=== PATIENT | male | born 1970 | race Caucasian/White ===

== ENCOUNTER → 2022-08-26 08:58 | Outpatient (BNVA) | payer BC, SELFPAY | PROVIDERS: PCP Physician Assistant Medical; Visit Provider Psychiatry & Neurology Neurology | DX: G43.119 Migraine with aura, intractable, without status migrainosus (principal) ==

== ENCOUNTER → 2022-12-03 12:50 | Outpatient (BNVA) | payer BC, SELFPAY | PROVIDERS: PCP Physician Assistant Medical; Visit Provider Psychiatry & Neurology Neurology ==

== ENCOUNTER 2023-03-24 08:53 | Outpatient (AMB) | payer BC, SELFPAY ==
--- NOTE | 2023-03-24 08:57 | MHC.OFFVIS ---
Intake Vital Signs 03/24/23 09:00 Height 5 ft 11 in Weight 264 lb 8 oz BMI 36.9 BP 130/72 Blood Pressure Location Lt brachial Position Sitting Respiration 18 Pulse 68 Pulse Source Pulse Oximeter Pulse Oximetry (%) 100 Oxygen Delivery Method Room Air Intake Visit Reasons: 3month follow up-confirmed Allergies topiramate Allergy (Severe, Verified 03/24/23 08:58) Nausea Medication List - Last Reconciled 03/24/23 by Vanita Yates MD atorvastatin 40 mg PO DAILY erenumab-aooe (Aimovig Autoinjector) 140 mg subcut .q monthly 90 days magnesium oxide 400 mg PO DAILY propranolol ER 60 mg PO BEDTIME riboflavin (vitamin B2) 400 mg PO DAILY sumatriptan succinate 100 mg PO DIRECTED HPI HPI Comments History of Present Illness Details 52y/o male comes for follow up of migraines and sleep apnea. He did not start propranalol - he was worried about. He reports mild daily headaches which transforms to migraines 3-4 times a week. He takes sumatriptan as needed. The headaches can last the whole day. He had a neck sprain when he in [employer] 30 years ago The headaches can be frontal or unitemporal throbbing, pounding pain, light sensitive, has visual aura and has nausea.stress worsens migraines.He also has chronic tinnitus, depression or anxiety, He has sleep apnea and is on CPAP 12 - diagnosed in 2017 .He sleeps better,. He is on aimovig which has decreased the number of headaches and less intense. [facility] Medical History Depression Headache Memory loss Surgical History History of biopsy No pertinent past surgical history Family History Mother Crohn disease Emphysema lung Social History Alcohol intake: current Alcohol intake frequency: holidays/special occasions only Patient Tobacco Use Status: Never used Tobacco Physical Exam Vital Signs: Last Vital Signs Pulse 68 03/24/23 09:00 Resp 18 03/24/23 09:00 BP 130/72 03/24/23 09:00 Pulse Ox 100 03/24/23 09:00 Oxygen Delivery Method Room Air 03/24/23 09:00 BMI result Body Mass Index 36.9 Const General: cooperative, healthy appearing and comfortable Nutritional Appearance: obese Orientation/consciousness: patient oriented x3 HEENT Head: Yes normal to inspection Face and sinus: Yes normal facial exam Neuro General: patient oriented x3, gait normal, tone normal and moves all extremities Cranial nerves: Yes Bilaterally intact EOM present, Yes Nystagmus not present, Yes Normal facial strength present and Yes Midline tongue present Cognition (Neuro): normal cognition Coordination: [id number] test normal Assessment & Plan Assessment & Plan (1) Migraine with aura, intractable, without status migrainosus: Code(s): G43.119 - Migraine with aura, intractable, without status migrainosus (2) TOM on CPAP: Code(s): G47.33 - Obstructive sleep apnea (adult) (pediatric); Z99.89 - Dependence on other enabling machines and devices Plan Continue CPAP at 12 cm of water. Compliance stressed. magnesium 400mg qhs Vit B 2 400mg qam Trial patient on propranolol 10mg bid Aimovig 140mg qmonthly. Medications: New propranolol 10 mg PO BID 60 tabs 6RF Discontinued propranolol ER Discontinued Reason: Doctor's Order 60 mg PO BEDTIME 30 caps 3RF Coding Level of Care Code Est Pt Level 4 (12982) Diagnoses Migraine with aura, intractable, without status migrainosus G43.119 TOM on CPAP G47.33; Z99.89
[2023-03-24 09:00] VITALS: BP 130/72; PULSE 68; RESP 18; O2SAT 100; BMI 36.9
== END 2023-03-24 09:13 | disposition home or self-care (01) ==
PROVIDERS: Visit Provider Psychiatry & Neurology Neurology
DX: G43.119 Migraine with aura, intractable, without status migrainosus (principal); G47.33 Obstructive sleep apnea (adult) (pediatric); Z99.89 Dependence on other enabling machines and devices
CPT/HCPCS: 99214

== ENCOUNTER → 2023-03-24 08:53 | Outpatient (BNVA) | payer BC, SELFPAY | PROVIDERS: Visit Provider Psychiatry & Neurology Neurology ==

== ENCOUNTER 2023-08-12 07:55 | Outpatient (AMB) | payer BC, SELFPAY ==
[2023-08-12 08:00] VITALS: BP 126/84; PULSE 77; O2SAT 97; BMI 37.7
--- NOTE | 2023-08-12 08:00 | MHC.OFFVIS ---
Intake Vital Signs 08/12/23 08:00 Height 5 ft 11 in Weight 270 lb BMI 37.7 BP 126/84 Blood Pressure Location Rt brachial Position Sitting Pulse 77 Pulse Source Pulse Oximeter Pulse Oximetry (%) 97 Oxygen Delivery Method Room Air Intake Visit Reasons: 3m follow up-Confirmed Intake Note: Patient presents for 3 month follow up Allergies topiramate Allergy (Severe, Verified 08/12/23 08:02) Nausea HPI HPI Comments History of Present Illness Details 52y/o male comes for follow up of migraines and sleep apnea. He reports mild daily headaches which transforms to migraines 2-3 times a week. He takes sumatriptan as needed. The headaches can last the whole day. He is on aimovig which has decreased the number of headaches and less intense. He tried propranolol, but it caused him very sleepy. He also tried topiramate, not tolerated. He had a neck sprain when he in [employer] 30 years ago The headaches can be frontal or unitemporal throbbing, pounding pain, light sensitive, has visual aura and has nausea, stress worsens migraines. He also has chronic tinnitus, depression or anxiety. He has sleep apnea and is on CPAP 12 - diagnosed in 2017. He sleeps better with CPAP and daytime sleepiness has improved. The CPAP compliance and therapy response (05/14/23-08/11/23) reviewed. The usage days 100% and the average usage hours 8 hrs. The AHI was 1.2/hr. [facility] Medical History Depression Headache Memory loss Surgical History History of biopsy No pertinent past surgical history Family History Mother Crohn disease Emphysema lung Social History Alcohol intake: current Alcohol intake frequency: holidays/special occasions only Patient Tobacco Use Status: Never used Tobacco Review of Systems Const All systems reviewed & are unremarkable except as noted in HPI and below Physical Exam Vital Signs: Last Vital Signs Pulse 77 08/12/23 08:00 BP 126/84 08/12/23 08:00 Pulse Ox 97 08/12/23 08:00 Oxygen Delivery Method Room Air 08/12/23 08:00 BMI result Body Mass Index 37.7 Const General: cooperative, healthy appearing and comfortable Nutritional Appearance: obese Orientation/consciousness: patient oriented x3 HEENT Head: Yes normal to inspection Face and sinus: Yes normal facial exam Neuro General: patient oriented x3, gait normal, tone normal and moves all extremities Cranial nerves: Yes Bilaterally intact EOM present, Yes Nystagmus not present, Yes Normal facial strength present and Yes Midline tongue present Cognition (Neuro): normal cognition Coordination: [id number] test normal Assessment & Plan Assessment & Plan (1) Migraine with aura, intractable, without status migrainosus: Code(s): G43.119 - Migraine with aura, intractable, without status migrainosus (2) TOM on CPAP: Code(s): G47.33 - Obstructive sleep apnea (adult) (pediatric); Z99.89 - Dependence on other enabling machines and devices Plan Continue CPAP at [id number] as patient experiences good clinical effects, rest and refreshing sleep and daytime sleepiness has improved. Compliance stressed. Continue to take magnesium 400mg qhs Vit B 2 400mg qam for migraine prevention. Continue Aimovig 140mg qmonthly and uses sumatriptan 100 mg as needed to treat acute migraine. Medications: Changed From riboflavin (vitamin B2) 400 mg PO DAILY To riboflavin (vitamin B2) 400 mg PO DAILY 90 tabs 3RF 90 days From magnesium oxide 400 mg PO DAILY To magnesium oxide 400 mg PO DAILY 90 caps 3RF 90 days Refilled sumatriptan succinate 100 mg PO DIRECTED 12 tabs 6RF erenumab-aooe (Aimovig Autoinjector) 140 mg subcut .q monthly 3 mL 3RF 90 days Coding Level of Care Code Est Pt Level 4 (32442) Diagnoses Migraine with aura, intractable, without status migrainosus G43.119 TOM on CPAP G47.33; Z99.89
== END 2023-08-12 08:42 | disposition home or self-care (01) ==
PROVIDERS: PCP Physician Assistant Medical; Visit Provider Nurse Practitioner Family
DX: G43.119 Migraine with aura, intractable, without status migrainosus (principal); G47.33 Obstructive sleep apnea (adult) (pediatric); Z99.89 Dependence on other enabling machines and devices
CPT/HCPCS: 99214

== ENCOUNTER → 2023-08-12 07:55 | Outpatient (BNVA) | payer BC, SELFPAY | PROVIDERS: PCP Physician Assistant Medical; Visit Provider Nurse Practitioner Family | DX: G43.119 Migraine with aura, intractable, without status migrainosus (principal); G47.33 Obstructive sleep apnea (adult) (pediatric); Z99.89 Dependence on other enabling machines and devices ==

== ENCOUNTER 2024-06-09 08:06 | Outpatient (AMB) | payer BC, SELFPAY ==
--- NOTE | 2024-06-09 08:07 | MHC.OFFVIS ---
Vital Signs 06/09/24 08:08 Height 5 ft 11 in Weight 258 lb BMI 36.0 BP 116/86 Blood Pressure Location Rt brachial Position Sitting Intake Visit Reasons: 6 mnts for TOM and Migraines Intake Note: migraines are still the same Aimovig helps patient manage. 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 He was in the [employer] and exposed to many chemicals while working in [employer], [place] diagnosed him with Meniers disease. He is on Sumatriptan 100mg PRN and Aimovig 140mg x 1 monthly. His migraines are managed, frontal radiating to the occipital and temporal areas. Still continues to have migraines 1-2x per week but better than before. He continues to have balance issues, tinnitus, noise sensitivity, light sensitivity with Kaleidoscope type auras. He vomitted once last month and thinks it was due to the onset of the migraine, and slept for 4 hours then felt better. [facility] diagnosed him with muscle twitching and vibration sensation of LE and UE, the face and forearm tend to be worse. TOM: He is doing well with his CPAP machine. Cleans the mask and changes filters and water with distilled water, pressures are good. Denies gasping for air in the middle of the night, choking or swallowing and speech difficulties. Wakes up feel better than before. He denies brain fog, memory difficulties, sluggishness, fatigue. Mallapti Score of 4. Denies parasomnia, alcohol use, and does not smoke. BMI is 36, he is using Wegovy with good results. Taking a multivitamin, magnesium. CPAP Report >4 hours 89 days total Average hours used 8 hours and 42 min CPAP 12 cmH20 Leaks 0.3 to Max 11.2 AHI is 1.5 PFSH Medical History Memory loss Headache Depression Surgical History History of biopsy No pertinent past surgical history Family History Mother Crohn disease Emphysema lung Social History Alcohol intake: current Alcohol intake frequency: holidays/special occasions only Patient Tobacco Use Status: Never used Tobacco Review of Systems Const All systems reviewed & are unremarkable except as noted in HPI and below Physical Exam Vital Signs: Last Vital Signs BP 116/86 06/09/24 08:08 BMI result Body Mass Index 36.0 Const General: cooperative, comfortable and no acute distress Nutritional Appearance: average body habitus and obese Orientation/consciousness: patient oriented x3 HEENT Face and sinus: Yes normal facial exam and Yes face symmetric Mouth: tongue normal Eyes Pupils: Equal, round and reactive pupils present, Pupils normal by confrontation and Pupil accommodation reflex normal Neck Neck: Yes full ROM (limited ROM on rotation bilaterally, flexion and extension d/t past injury.) Resp Effort & Inspection: normal respiratory effort and able to speak in complete sentences Neuro General: patient oriented x3 Cranial nerves: Yes CN's II-XII intact bilaterally, Yes Facial sensation intact/muscles of mastication intact, Yes Equal, round and reactive pupils present, Yes Normal accommodation reflex present, Yes Midline tongue present, Yes Ability to bilaterally rotate head present (with limited ROM) and Yes Ability to bilaterally elevate shoulders present Motor exam (neuro): 5/5 motor strength present throughout Deep tendon reflexes (DTR's): Right triceps reflex intensity grade: 2+, Left triceps reflex intensity grade: 2+, Rt Biceps (C5, C6): 2+, Left biceps reflex intensity grade: 2+, Right brachioradialis reflex intensity grade: 2+, Left brachioradialis reflex intensity grade: 2+, Right patellar reflex intensity grade: 2+ and Left patellar reflex intensity grade: 2+ Coordination: [id number] test normal Assessment & Plan Assessment & Plan (1) Migraine with aura, intractable, without status migrainosus: Code(s): G43.119 - Migraine with aura, intractable, without status migrainosus Category: Medical Plan: Continue with Aimovig 140mg sub-q inj q 30 days for migraine prevention. Continue with Sumatriptan 100mg PRN at the onset of migraine. (2) TOM on CPAP: Code(s): G47.33 - Obstructive sleep apnea (adult) (pediatric); Z99.89 - Dependence on other enabling machines and devices Category: Medical Plan: Continue to use CPAP 12 cmH2O nightly > 4 hrs, as patient is having good clinical effects with good compliance. Follow up with any questions or concerns with the clinic or respiratory company- [facility]. Plan Schedule for a 6 month follow up. Pt seen by Stanley MACKEY in coordination w/ myself ELLA Desouza-SELINA, I agree with the above documentation and plan. Coding Level of Care Code Est Pt Level 4 (35982) Complex EM visit Add On G2211 Diagnoses Migraine with aura, intractable, without status migrainosus G43.119 TOM on CPAP G47.33; Z99.89
[2024-06-09 08:08] VITALS: BP 116/86; BMI 36.0
== END 2024-06-09 08:51 | disposition home or self-care (01) ==
PROVIDERS: Absent Provider Nurse Practitioner Family; PCP Physician Assistant Medical; Visit Provider Physician Assistant Medical
DX: G43.119 Migraine with aura, intractable, without status migrainosus (principal); G47.33 Obstructive sleep apnea (adult) (pediatric); Z99.89 Dependence on other enabling machines and devices
CPT/HCPCS: 99214

== ENCOUNTER → 2024-06-09 08:06 | Outpatient (BNVA) | payer BC, SELFPAY | PROVIDERS: Absent Provider Nurse Practitioner Family; PCP Physician Assistant Medical; Visit Provider Nurse Practitioner Family ==

== ENCOUNTER 2025-01-11 08:28 | Outpatient (AMB) | payer BC, SELFPAY ==
--- OUTSIDE RECORDS SUMMARY | 2025-01-11 08:41 | XMS_ITS | Clinical Summary ---
Author Organization Formerly [facility] Address [address] [place] [address] Care Team Providers Care Signs And Displays Sales Representative Name Role Phone Unavailable Primary Care Provider Unavailabl e Social History Tobacco Use Types Packs/Day Years Used Date Smoking Tobacco: Never Assessed Sex and Gender Information Value Date Recorded Sex Assigned at Not on file Legal Sex Male 12:18 PM EDT Gender Identity Not on file Sexual Orientation Not on file Plan of Treatment Health Maintenance Due Date Last Done Comments Hepatitis C Virus Screening 1970 HIV Screening 12/03/1983 DTaP/Tdap/Td Vaccines (1 - Tdap) 1989 Hepatitis B Vaccines (1 of 3 - 19+ 3-dose series) 09/1989 Colonoscopy 12/03/2015 Pneumococcal Vaccines 50+ (1 of 1 - PCV) 2020 Zoster (Shingles) Vaccine (1 of 2) 2020 COVID-19 Vaccine (1 - 2023- season) 2024 Influenza Vaccine 03/02/2025 Insurance [facility]
--- NOTE | 2025-01-11 08:45 | MHC.OFFVIS ---
Vital Signs 01/11/25 08:49 Height 5 ft 11 in Weight 257 lb 2 oz BMI 35.9 BP 112/80 Blood Pressure Location Rt brachial Position Sitting Pulse 71 Pulse Source Pulse Oximeter Pulse Oximetry (%) 96 Oxygen Delivery Method Room Air Intake Visit Reasons: 6 mo follow up Intake Note: Patient presents follow up Migraine/TOM. Compliance in chart(90/90days, >=4hrs-100%, Average usage- 8hrs 3min, AHI1.2) Director Of Social Work Required: No Accompanied by: Self / Same As Patient Allergies topiramate Allergy (Severe, Verified 01/11/25 08:49) Nausea HPI Comments Details: 54 year old male with h/o Meniers disease, Migraines and TOM presents for a 6 month follow up visit. TOM compliance report 09/2024 to 12/2024 total use 89 days and >4 hours 90/90 Avg hours used 8hours and 42 min daily Press [id number] and leaks 0.3cmH20 Max 11.2cmH20 AHI is 1.2/hr He served 30 year in the [employer], and was exposed to many chemicals while working in [employer] plumes of aerosols Triflorochloroethane with spray bottle blower. [facility] Meniers [facility], we discussed dietary restrictions today. Migraines are well managed with Sumatriptan 100mg PRN and Aimovig 140mg x 1 monthly with frontal radiating to the occipital and temporal areas, pulsating 5/10 to 8/10 pain and can last for days. He is now has about 3 or more migraines per week, with balance and gait issues and photophobia / phonophobia along with a Kaleidoscope like aura. Denies vomiting in the last 4mos due to migraines, but has vomited in the past. His memory is poor at baseline. [facility] diagnosed him with muscle twitching and vibration sensation of bilateral UE and LE, the sensations are most bothersome in the face and forearm. No seizure activities on EEG and Muscle Bx did not show small fiber neruopathy. Cleans the mask and changes filters and water with distilled water, pressures are good. BMI is 36 he is on Wegovy and slowly losing weight. [facility] Medical History Memory loss Headache Depression Surgical History History of biopsy No pertinent past surgical history Family History Mother Crohn disease Emphysema lung Social History Alcohol intake: current Alcohol intake frequency: holidays/special occasions only Patient Tobacco Use Status: Never used Tobacco Physical Exam Vital Signs: Last Vital Signs Pulse 71 01/11/25 08:49 BP 112/80 01/11/25 08:49 Pulse Ox 96 01/11/25 08:49 Oxygen Delivery Method Room Air 01/11/25 08:49 BMI result Body Mass Index 35.9 Const General: cooperative, comfortable and no acute distress Nutritional Appearance: average body habitus and obese Orientation/consciousness: patient oriented x3 HEENT Face and sinus: Yes normal facial exam and Yes face symmetric Mouth: tongue normal Eyes Pupils: Equal, round and reactive pupils present, Pupils normal by confrontation and Pupil accommodation reflex normal Neck Neck: Yes full ROM (limited ROM on rotation bilaterally, flexion and extension d/t past injury.) Resp Effort & Inspection: normal respiratory effort and able to speak in complete sentences Neuro General: patient oriented x3 and moves all extremities Cranial nerves: Yes CN's II-XII intact bilaterally, Yes Facial sensation intact/muscles of mastication intact, Yes Equal, round and reactive pupils present, Yes Normal accommodation reflex present, Yes Midline tongue present, Yes Ability to bilaterally rotate head present (with limited ROM) and Yes Ability to bilaterally elevate shoulders present Gait exam (Neuro): Normal gait present Motor exam (neuro): 5/5 motor strength present throughout Coordination: [id number] test normal Psych Appearance: grossly normal Attitude: cooperative Thought process: Normal thought process present Thought content: Normal thought content present Assessment & Plan Assessment & Plan (1) Migraine with aura, intractable, without status migrainosus: Code(s): G43.119 - Migraine with aura, intractable, without status migrainosus Category: Medical Plan: Continue with Aimovig 140mg sub-q inj q 30 days for migraine prevention. Continue with Sumatriptan 100mg PRN at the onset of migraine. (2) TOM on CPAP: Code(s): G47.33 - Obstructive sleep apnea (adult) (pediatric); Z99.89 - Dependence on other enabling machines and devices Category: Medical Plan: Continue to use CPAP 12 cmH2O nightly > 4 hrs, as patient is having good clinical effects with good compliance. Follow up with any questions or concerns with the clinic or respiratory company- [facility]. Plan f/u in 6 months for compliance and monitoring of Menieres. Medications: Refilled sumatriptan succinate 100 mg PO Q2H 30 days PRN 12 tabs 6RF migraine headache MDD 2 tabs magnesium oxide 400 mg PO DAILY 90 days 90 caps 3RF riboflavin (vitamin B2) 400 mg PO DAILY 90 days 90 tabs 3RF Patient Instructions: Sleep Hygiene provided: set a scheduled bedtime and wake time to help regulate the circadian rhythm and balance the release of pituitary hormones. Sleep in a dark room, temperatures below 68 degrees, and no devices n bed. Limit caffeinated products 6 hours prior to bed, and limit fluids 2-4 hours prior to bed. Gentle night yoga, diffusing essential oils, and playing soft music can be relaxing. Coding Level of Care Code Est Pt Level 4 (71641) Diagnoses Migraine with aura, intractable, without status migrainosus G43.119 TOM on CPAP G47.33; Z99.89 Time Spent (min) 30 Comment
[2025-01-11 08:49] VITALS: BP 112/80; PULSE 71; O2SAT 96; BMI 35.9
== END 2025-01-11 09:26 | disposition home or self-care (01) ==
LOC: HO.HSMS 08:29
PROVIDERS: PCP Physician Assistant Medical; Visit Provider Physician Assistant Medical
DX: G43.119 Migraine with aura, intractable, without status migrainosus (principal); G47.33 Obstructive sleep apnea (adult) (pediatric); Z99.89 Dependence on other enabling machines and devices
CPT/HCPCS: 99214

== ENCOUNTER 2025-07-12 08:05 | Outpatient (AMB) | payer BC, SELFPAY ==
--- NOTE | 2025-07-12 08:05 | MHC.OFFVIS ---
Vital Signs 07/12/25 08:06 Height 5 ft 11 in Weight 259 lb 2 oz BMI 36.1 BP 118/74 Blood Pressure Location Lt brachial Position Sitting Pulse 77 Pulse Source Pulse Oximeter Pulse Oximetry (%) 97 Oxygen Delivery Method Room Air Intake Visit Reasons: 6 mo follow up Intake Note: Patient presents follow up Migraine/TOM. 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 TOM compliance report is reviewed with pt today 04/2025-07/2025 Total use is 90 days and >4 hours 90/90. Avg daily use is 8hrs 42 min Press [id number] and leaks max 22.3/min AHI is 1.2/hr He cleans the mask, rinses hoses, changes filters and water. Since started cpap his brain fog and fatigue levels have improved. 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 [facility] with Menier's [facility], we discussed dietary restrictions today along with decreasing sodium and caffeine intake for symptomatic control. Migraines are well managed with Sumatriptan 100mg PRN and Aimovig 140mg 1 monthly. Since starting Aimovig he averages 3 or more migraines per week, the last week prior to the next dose efficacy wanes, has to adjunct with sumatriptan 2-3 doses. Migraines are always frontal radiating to the occipital and temporal areas, pulsating 5/10 to 8/10 pain with discomfort which lasts for days. He has photo/phonophobia, with auras and a kaleidoscope like vision changes, balance and gait issues at base line, with nausea, dizziness, and vertigo. He denies vomiting. His memory is poor at baseline, forgets why he entered a room, misplaces his keys and appointments. [facility] [place] diagnosed him with muscle twitching and vibration sensation of bilateral UE and LE. The sensations are most bothersome in the face eyes, and forearm. No seizure activities on EEG and muscle Bx did not show small fiber neuropathy. Discontinued Wegovy due to insurance cost. [facility] Medical History Memory loss Headache Depression Surgical History History of biopsy No pertinent past surgical history Family History Mother Crohn disease Emphysema lung Social History Alcohol intake: current Alcohol intake frequency: holidays/special occasions only Patient Tobacco Use Status: Never used Tobacco Physical Exam Vital Signs: Last Vital Signs Pulse 77 07/12/25 08:06 BP 118/74 07/12/25 08:06 Pulse Ox 97 07/12/25 08:06 Oxygen Delivery Method Room Air 07/12/25 08:06 BMI result Body Mass Index 36.1 Const General: cooperative, comfortable and no acute distress Nutritional Appearance: average body habitus and obese Orientation/consciousness: patient oriented x3 HEENT Face and sinus: Yes normal facial exam and Yes face symmetric Mouth: tongue normal Eyes Pupils: Equal, round and reactive pupils present, Pupils normal by confrontation and Pupil accommodation reflex normal Neck Neck: Yes full ROM (limited ROM on rotation bilaterally, flexion and extension d/t past injury.) Resp Effort & Inspection: normal respiratory effort and able to speak in complete sentences Neuro Other: mild upper ext tremors with arms stretched out, not bothersome. General: patient oriented x3 and moves all extremities Cranial nerves: Yes Facial sensation intact/muscles of mastication intact, Yes Equal, round and reactive pupils present, Yes Normal accommodation reflex present, Yes Midline tongue present, Yes Ability to bilaterally rotate head present (with limited ROM) and Yes Ability to bilaterally elevate shoulders present Cognition (Neuro): normal cognition Motor exam (neuro): 5/5 motor strength present throughout and Normal motor muscle tone present throughout Deep tendon reflexes (DTR's): Right triceps reflex intensity grade: 2+, Left triceps reflex intensity grade: 2+, Rt Biceps (C5, C6): 2+, Left biceps reflex intensity grade: 2+, Right brachioradialis reflex intensity grade: 2+, Left brachioradialis reflex intensity grade: 2+, Right patellar reflex intensity grade: 2+ and Left patellar reflex intensity grade: 2+ Coordination: [id number] test normal Psych Appearance: grossly normal Attitude: cooperative Thought process: Normal thought process present Thought content: Normal thought content present Results Reviewed Results Reviewed: TOM compliance report is reviewed with pt today 04/2025-07/2025 Total use is 90 days and >4 hours /90. Avg daily use is 8hrs 42 min Press [id number] and leaks max 22.3/min AHI is 1.2/hr Assessment & Plan Assessment & Plan (1) TOM on CPAP: Code(s): G47.33 - Obstructive sleep apnea (adult) (pediatric); Z99.89 - Dependence on other enabling machines and devices Category: Medical Plan: Continue to use CPAP 12 cmH2O nightly > 4 hrs, as patient is having good clinical effects with good compliance. Follow up with any questions or concerns with the clinic or respiratory company- [facility]. (2) Chronic fatigue: Code(s): R53.82 - Chronic fatigue, unspecified Category: Medical (3) Migraine with aura, intractable, without status migrainosus: Comment: Aimovig Code(s): G43.119 - Migraine with aura, intractable, without status migrainosus Category: Medical Plan: Continue with Aimovig 140mg sub-q inj q 30 days for migraine prevention. Continue with Sumatriptan 100mg PRN at the onset of migraine. Plan TOM and on cpap therapy, he is compliant, will monitor. Stable tremor like twitching in eye and vibration like sensation- arms twitching, will request labs. to check for B12 - Magnesium -Ferritin- cbc-cmp- iron deficiencies. RLS will monitor continue magnesium 200-400mg po daily. Request Labs [facility] F/U in 6 monhts. Orders: Orders Complete Blood Count no Diff Today R53.82 - Chronic fatigue, unspecified Comprehensive Met. Panel Today R53.82 - Chronic fatigue, unspecified Ferritin Today R53.82 - Chronic fatigue, unspecified Homocysteine Today G47.9 - Sleep disorder, unspecified, R53.82 - Chronic fatigue, unspecified, R53.83 - Other fatigue Vitamin D 25-OH Total Today R53.82 - Chronic fatigue, unspecified IRON PROFILE Today G47.9 - Sleep disorder, unspecified, R53.82 - Chronic fatigue, unspecified, R53.83 - Other fatigue TSH reflex Free T4 Today R53.82 - Chronic fatigue, unspecified Vitamin B1 Today R53.82 - Chronic fatigue, unspecified Hemoglobin A1c Today R53.82 - Chronic fatigue, unspecified Methylmalonic Acid Today G47.9 - Sleep disorder, unspecified, R53.82 - Chronic fatigue, unspecified, R53.83 - Other fatigue Vitamin B12 and Folate Today R53.82 - Chronic fatigue, unspecified Magnesium Today R53.82 - Chronic fatigue, unspecified Vitamin B6 Today R53.82 - Chronic fatigue, unspecified Patient Instructions: Sleep Hygiene provided: set a scheduled bedtime and wake time to help regulate the circadian rhythm and balance the release of pituitary hormones. Sleep in a dark room, temperatures below 68 degrees, and no devices n bed. Limit caffeinated products 6 hours prior to bed, and limit fluids 2-4 hours prior to bed. Gentle night yoga, diffusing essential oils, and playing soft music can be relaxing. Coding Level of Care Code Est Pt Level 4 (50642) Diagnoses TOM on CPAP G47.33; Z99.89 Chronic fatigue R53.82 Migraine with aura, intractable, without status migrainosus G43.119
[2025-07-12 08:06] VITALS: BP 118/74; PULSE 77; O2SAT 97; BMI 36.1
== END 2025-07-12 08:59 | disposition home or self-care (01) ==
PROVIDERS: PCP Physician Assistant Medical; Visit Provider Physician Assistant Medical
DX: G47.33 Obstructive sleep apnea (adult) (pediatric) (principal); Z99.89 Dependence on other enabling machines and devices; R53.82 Chronic fatigue, unspecified; G43.119 Migraine with aura, intractable, without status migrainosus
CPT/HCPCS: 99214

== ENCOUNTER 2025-08-01 09:51 | Outpatient (REF) | payer BC, SELFPAY ==
--- OUTSIDE RECORDS SUMMARY | 2025-08-01 10:38 | XMS_ITS | Data Portability ---
Author Organization [facility], Main Office Address [address] [place] [address] Care Team Providers Care Medical Technologist Prn Name Role Phone VALERIA GRANT Primary Care Provider ALYX FORTE Neurologist SHANTELLE BAUTISTA Neurologist CHARI GONZALEZ Hematology/Oncology BILL LIN Orthopedic Surgeon [phone] MEGAN PERAZA General Surgeon Assessment No assessment recorded. Plan of Treatment Reminders Order Date Submit Date Provider Last Modified By Organization Details Last Modified Time Details Appointments FOLLOW UP 2025 08:30A M Valeria Grant PAMichael Not available Not available Not available Lab lipid panel, serum 2024 025 ELIF [facility] (Centralized Electronic Ordering - All Locations), Patient Can Go To The Location Of Their Choice, 12/19/2024 06:07:41 CMP, serum or plasma 2024 025 ELIF [facility] (Centralized Electronic Ordering - All Locations), Patient Can Go To The Location Of Their Choice, 12/19/2024 06:07:41 HbA1c (hemog lobin A1c), blood 2024 025 ELIF [facility] (Centralized Electronic Ordering - All Locations), Patient Can Go To The Location Of Their Choice, 12/19/2024 06:07:42 CBC w/ auto diff 2024 025 ELIF [facility] (Centralized Electronic Ordering - All Locations), Patient Can Go To The Location Of Their Choice, 12/19/2024 06:07:40 TSH, ultra- sensit dk, serum 2024 025 ELIF [facility] (Centralized Electronic Ordering - All Locations), Patient Can Go To The Location Of Their Choice, 12/19/2024 06:07:42 HbA1c (hemog lobin A1c), blood 2023 025 [email or web address] [facility] (Centralized Electronic Ordering - All Locations), Patient Can Go To The Location Of Their Choice, 03/30/2025 11:40:06 lipid panel, serum 2023 025 LEIF [facility] (Centralized Electronic Ordering - All Locations), Patient Can Go To The Location Of Their Choice, 03/30/2025 04:08:07 BMP, serum or plasma 2023 024 ELIF [facility] (Centralized Electronic Ordering - All Locations), Patient Can Go To The Location Of Their Choice, 08/01/2024 06:07:55 CMP, serum or plasma 2023 025 [email or web address] [facility] ([facility]ized Electronic Ordering - All Locations), Patient Can Go To The Location Of Their Choice, 03/30/2025 11:40:06 TSH + free T4, serum 2023 025 ELIF [facility] ([facility]ized Electronic Ordering - All Locations), Patient Can Go To The Location Of Their Choice, 03/30/2025 04:08:07 BMP, serum or plasma 2023 024 ELIF [facility] ([facility]ized [facility] Ordering - All Locations), Patient Can Go To The Location Of Their Choice, 03/01/2024 09:07:53 Referral None record ed. Procedures None record ed. Surgeries None record ed. Imaging None record ed. Medication Orders Wegovy 0.5 mg/0.5 mL subcut aneous pen inject or 2024 025 [id number], [address] [place] [address], [id number], 12/18/2024 11:31:41 Patient TargetsNo targets recorded. Patient Instructions Encounter Date Encounter Id Patient Instructions Last Modified By Organization Details Last Modified Time 03/01/2024 [id number] body mass index: care instructions Not available 03/01/2024 09:07:45 learning about healthy weight Not available 03/01/2024 09:07:45 05/29/2024 [id number] prediabetes: car e instructions Not available 05/29/2024 09:07:03 high cholesterol : care instructions Not available 05/29/2024 09:07:03 body mass index: care instructions Not available 05/29/2024 09:06:26 learning about healthy weight Not available 05/29/2024 09:06:26 10/02/2024 [id number] high cholesterol : care instructions Not available 10/02/2024 09:28:20 M ni re's disease: care instructions Not available 10/02/2024 09:28:20 prediabetes: car e instructions Not available 10/02/2024 09:28:20 sleep apnea: car e instructions Not available 10/02/2024 09:28:20 depression treatment: care instructions Not available 10/02/2024 09:28:20 migraine aura without a headache: care instructions Not available 10/02/2024 09:28:20 body mass index: care instructions Not available 10/02/2024 09:28:20 learning about healthy weight Not available 10/02/2024 09:28:20 12/18/2024 [id number] body mass index: care instructions Not available 12/18/2024 14:59:18 learning about healthy weight Not available 12/18/2024 14:59:18 04/20/2025 [id number] prediabetes: car e instructions Not available 04/20/2025 12:36:35 body mass index: care instructions Not available 04/20/2025 12:36:35 learning about healthy weight Not available 04/20/2025 12:36:35 Reason for Referral None Reported. Results Created Date Observation Date Name Description Value Unit Range Abnormal Flag Note LastModifiedBy Organization Detail LastModifiedTime 07/31/20 24 07/31/2024 BASIC METAB OLIC PANEL (8) glucose 97 mg/dL 70-99 normal Not Available [facility] ([facility]) [address] [place], [address], 08/01/2024 06:07:55 07/31/20 24 07/31/2024 BASIC METAB OLIC PANEL (8) BUN 24 mg/dL 6-24 normal Not Available [facility] ([place] [facility]) [address] [place], [address], 08/01/2024 06:07:55 07/31/20 24 07/31/2024 BASIC METAB OLIC PANEL (8) creatinine 1.12 mg/dL 0.76-1 .27 normal Not Available [facility] ([facility]) [address] [facility] [place], [address], 08/01/2024 06:07:55 07/31/20 24 07/31/2024 BASIC METAB OLIC PANEL (8) eGFR 79 mL/mi n/1.7 3 >59 normal Not Available [facility] ([facility]) [address] [facility] [place], [address], 08/01/2024 06:07:55 07/31/20 24 07/31/2024 BASIC METAB OLIC PANEL (8) BUN/creatini ne ratio 21 9-20 above high normal Not Available [facility] ([facility]) [address] [facility] [place], [address], 08/01/2024 06:07:55 07/31/20 24 07/31/2024 BASIC METAB OLIC PANEL (8) sodium 145 mmol/ L 134-14 4 above high normal Not Available [facility] ([facility]) [address] [facility] [place], [address], 08/01/2024 06:07:55 07/31/20 24 07/31/2024 BASIC METAB OLIC PANEL (8) potassium 4.4 mmol/ L 3.5-5. 2 normal Not Available [facility] ([facility]) [address] [place], [address], 08/01/2024 06:07:55 07/31/20 24 07/31/2024 BASIC METAB OLIC PANEL (8) chloride 106 mmol/ L 96-106 normal Not Available [facility] ([facility]) [address] [place], [address], 08/01/2024 06:07:55 07/31/20 24 07/31/2024 BASIC METAB OLIC PANEL (8) carbon dioxide, total 21 mmol/ L 20-29 normal Not Available [facility] ([facility]) [address] [place], [address], 08/01/2024 06:07:55 07/31/20 24 07/31/2024 BASIC METAB OLIC PANEL (8) calcium 9.6 mg/dL 8.7-10 .2 normal Not Available [facility] ([facility]) [address] [place], [address], 08/01/2024 06:07:55 12/19/19 25 12/19/2024 CBC WITH DIFFE RENTI AL/PL ATELE T WBC 7.4 x10e3 /uL 3.4-10 .8 normal Not Available [facility] ([facility]) [address] [place], [address], 12/19/2024 06:07:40 12/19/19 25 12/19/2024 CBC WITH DIFFE RENTI AL/PL ATELE T RBC 5.14 x10e6 /uL 4.14-5 .80 normal Not Available [facility] ([facility]) [address] [place], [address], 12/19/2024 06:07:40 12/19/19 25 12/19/2024 CBC WITH DIFFE RENTI AL/PL ATELE T hemoglobin 14.6 g/dL 13.0-1 7.7 normal Not Available [facility] ([facility]) [address] [facility], [place], [address], 12/19/2024 06:07:40 12/19/19 25 12/19/2024 CBC WITH DIFFE RENTI AL/PL ATELE T hematocrit 42.7 % 37.5-5 1.0 normal Not Available [facility] ([facility]) [address] [place], [address], 12/19/2024 06:07:40 12/19/1912/19/2024 CBC WITH DIFFE RENTI AL/PL ATELE T MCV 83 fL 79-97 normal Not Available [facility] ([facility]) [address] [place], [address], 12/19/2024 06:07:40 12/19/19 25 12/19/2024 CBC WITH DIFFE RENTI AL/PL ATELE T MCH 28.4 pg 26.6-3 3.0 normal Not Available [facility] ([facility]) [address] [place], [address], 12/19/2024 06:07:40 12/19/19 25 12/19/2024 CBC WITH DIFFE RENTI AL/PL ATELE T MCHC 34.2 g/dL 31.5-3 5.7 normal Not Available [facility] ([facility]) [address] [place], [address], 12/19/2024 06:07:40 12/19/19 25 12/19/2024 CBC WITH DIFFE RENTI AL/PL ATELE T RDW 13.1 % 11.6-1 5.4 Not Available [facility] ([facility]) [address] [place], [address], 12/19/2024 06:07:40 12/19/19 25 12/19/2024 CBC WITH DIFFE RENTI AL/PL ATELE T platelets 94 x10e3 /uL 150-45 0 alert low Not Available [facility] ([facility]) [address] [facility], [place], [address], 12/19/2024 06:07:40 12/19/19 25 12/19/2024 CBC WITH DIFFE RENTI AL/PL ATELE T neutrophils 68 % not estab. normal Not Available [facility] ([facility]) [address] [facility], [place], [address], 12/19/2024 06:07:40 12/19/19 25 12/19/2024 CBC WITH DIFFE RENTI AL/PL ATELE T lymphs 25 % not estab. normal Not Available [facility] ([facility]) [address] [facility], [place], [address], 12/19/2024 06:07:40 12/19/19 25 12/19/2024 CBC WITH DIFFE RENTI AL/PL ATELE T monocytes 6 % not estab. normal Not Available [facility] ([facility]) [address] [place], [address], 12/19/2024 06:07:40 12/19/19 25 12/19/2024 CBC WITH DIFFE RENTI AL/PL ATELE T eos 1 % not estab. normal Not Available [facility] ([facility]) [address] [facility], [place], [address], 12/19/2024 06:07:40 12/19/19 25 12/19/2024 CBC WITH DIFFE RENTI AL/PL ATELE T basos 0 % not estab. normal Not Available [facility] ([facility]) [address] [facility], [place], [address], 12/19/2024 06:07:40 12/19/19 25 12/19/2024 CBC WITH DIFFE RENTI AL/PL ATELE T immature cells HAND COMPOSITOR Not Available [facility] ([facility]) [address] [place], [address], 12/19/2024 06:07:40 12/19/19 25 12/19/2024 CBC WITH DIFFE RENTI AL/PL ATELE T neutrophils (absolute) 4.9 x10e3 /uL 1.4-7. 0 normal Not Available [facility] ([facility]) [address] [place], [address], 12/19/2024 06:07:40 12/19/19 25 12/19/2024 CBC WITH DIFFE RENTI AL/PL ATELE T lymphs (absolute) 1.9 x10e3 /uL 0.7-3. 1 normal Not Available [facility] ([facility]) [address] [place], [address], 12/19/2024 06:07:40 12/19/19 25 12/19/2024 CBC WITH DIFFE RENTI AL/PL ATELE T monocytes(ab solute) 0.5 x10e3 /uL 0.1-0. 9 normal Not Available [facility] ([facility]) [address] [place], [address], 12/19/2024 06:07:40 12/19/19 25 12/19/2024 CBC WITH DIFFE RENTI AL/PL ATELE T eos (absolute) 0.1 x10e3 /uL 0.0-0. 4 normal Not Available [facility] ([facility]) [address] [place], [address], 12/19/2024 06:07:40 12/19/19 25 12/19/2024 CBC WITH DIFFE RENTI AL/PL ATELE T baso (absolute) 0.0 x10e3 /uL 0.0-0. 2 normal Not Available [facility] ([facility]) [address] [place], [address], 12/19/2024 06:07:40 12/19/19 25 12/19/2024 CBC WITH DIFFE RENTI AL/PL ATELE T immature granulocytes 0 % not estab. Not Available [facility] ([facility]) [address] [facility], [place], [address], 12/19/2024 06:07:40 12/19/19 25 12/19/2024 CBC WITH DIFFE RENTI AL/PL ATELE T immature grans (abs) 0.0 x10e3 /uL 0.0-0. 1 Not Available [facility] ([facility]) [address] [facility], [place], [address], 12/19/2024 06:07:40 12/19/19 25 12/19/2024 CBC WITH DIFFE RENTI AL/PL ATELE T NRBC HAND COMPOSITOR Not Available [facility] ([facility]) [address] [facility], [place], [address], 12/19/2024 06:07:40 12/19/19 25 12/19/2024 CBC WITH DIFFE RENTI AL/PL ATELE T hematology comments: Note: Verif ied by micro gary nicolasi sudha nBryan Not Available [facility] ([facility]) [address] [place], [address], 12/19/2024 06:07:40 12/19/19 25 12/19/2024 COMP. METAB OLIC PANEL (14) glucose 95 mg/dL 70-99 normal Not Available [facility] ([facility]) [address] [place], [address], 12/19/2024 06:07:41 12/19/19 25 12/19/2024 COMP. METAB OLIC PANEL (14) BUN 21 mg/dL 6-24 normal Not Available [facility] ([facility]) [address] [place], [address], 12/19/2024 06:07:41 12/19/19 25 12/19/2024 COMP. METAB OLIC PANEL (14) creatinine 1.15 mg/dL 0.76-1 .27 normal Not Available [facility] ([facility]) [address] [facility] [place], [address], 12/19/2024 06:07:41 12/19/19 25 12/19/2024 COMP. METAB OLIC PANEL (14) eGFR 76 mL/mi n/1.7 3 >59 normal Not Available [facility] ([facility]) [address] [facility] [place], [address], 12/19/2024 06:07:41 12/19/19 25 12/19/2024 COMP. METAB OLIC PANEL (14) BUN/creatini ne ratio 18 9-20 normal Not Available [facility] ([facility]) [address] [facility] [place], [address], 12/19/2024 06:07:41 12/19/19 25 12/19/2024 COMP. METAB OLIC PANEL (14) sodium 144 mmol/ L 134-14 4 normal Not Available [facility] ([facility]) [address] [facility] [place], [address], 12/19/2024 06:07:41 12/19/19 25 12/19/2024 COMP. METAB OLIC PANEL (14) potassium 4.2 mmol/ L 3.5-5. 2 normal Not Available [facility] ([facility]) [address] [place], [address], 12/19/2024 06:07:41 12/19/19 25 12/19/2024 COMP. METAB OLIC PANEL (14) chloride 105 mmol/ L 96-106 normal Not Available [facility] ([facility]) [address] [place], [address], 12/19/2024 06:07:41 12/19/19 25 12/19/2024 COMP. METAB OLIC PANEL (14) carbon dioxide, total 20 mmol/ L 20-29 normal Not Available [facility] ([facility]) [address] [place], [address], 12/19/2024 06:07:41 12/19/19 25 12/19/2024 COMP. METAB OLIC PANEL (14) calcium 10.0 mg/dL 8.7-10 .2 normal Not Available [facility] ([facility]) [address] [facility] [place], [address], 12/19/2024 06:07:41 12/19/19 25 12/19/2024 COMP. METAB OLIC PANEL (14) protein, total 7.0 g/dL 6.0-8. 5 normal Not Available [facility] ([facility]) [address] [facility] [place], [address], 12/19/2024 06:07:41 12/19/19 25 12/19/2024 COMP. METAB OLIC PANEL (14) albumin 4.7 g/dL 3.8-4. 9 normal Not Available [facility] ([facility]) [address] [facility] [place], [address], 12/19/2024 06:07:41 12/19/19 25 12/19/2024 COMP. METAB OLIC PANEL (14) globulin, total 2.3 g/dL 1.5-4. 5 Not Available [facility] ([facility]) [address] [facility] [place], [address], 12/19/2024 06:07:41 12/19/19 25 12/19/2024 COMP. METAB OLIC PANEL (14) bilirubin, total 0.7 mg/dL 0.0-1. 2 normal Not Available [facility] ([facility]) [address] [facility] [place], [address], 12/19/2024 06:07:41 12/19/19 25 12/19/2024 COMP. METAB OLIC PANEL (14) alkaline phosphatase 67 IU/L 44-121 normal Not Available [facility] [address] [place], [address], 12/19/2024 06:07:41 12/19/19 25 12/19/2024 COMP. METAB OLIC PANEL (14) AST (SGOT) 19 IU/L 0-40 normal Not Available [facility] ([facility]) [address] [place], [address], 12/19/2024 06:07:41 12/19/19 25 12/19/2024 COMP. METAB OLIC PANEL (14) ALT (SGPT) 22 IU/L 0-44 normal Not Available [facility] ([facility]) [address] [place], [address], 12/19/2024 06:07:41 12/19/19 25 12/19/2024 LIPID PANEL cholesterol, total 147 mg/dL 100-19 9 normal Not Available [facility] ([facility]) [address] [place], [address], 12/19/2024 06:07:41 12/19/19 25 12/19/2024 LIPID PANEL triglyceride s 84 mg/dL 0-149 normal Not Available [facility] ([facility]) [address] [place], [address], 12/19/2024 06:07:41 12/19/19 25 12/19/2024 LIPID PANEL HDL cholesterol 55 mg/dL >39 normal Not Available [facility] ([facility]) [address] [place], [address], 12/19/2024 06:07:41 12/19/19 25 12/19/2024 LIPID PANEL VLDL cholesterol kwasi 16 mg/dL 5-40 Not Available [facility] ([facility]) [address] [place], [address], 12/19/2024 06:07:41 12/19/19 25 12/19/2024 LIPID PANEL LDL chol calc ([facility]) 76 mg/dL 0-99 Not Available [facility] ([facility]) [address] [place], [address], 12/19/2024 06:07:41 12/19/1912/19/2024 LIPID PANEL LDL calc comment: HAND COMPOSITOR Not Available [facility] ([facility]) [address] [place], [address], 12/19/2024 06:07:41 12/19/1912/19/2024 HEMOG LOBIN A1C hemoglobin A1C 5.5 % 4.8-5. 6 normal Predi abete s: 5.7 - 6.4 Diabe paulie: >6.4 Glyce saira contr ol for adult s with diabe paulie: <7.0 Not Available [facility] ([facility]) [address] [facility], [place], [address], 12/19/2024 06:07:42 12/19/1912/19/2024 TSH TSH 3.170 uIU/m L 0.450- 4.500 normal Not Available [facility] ([facility]) [address] [place], [address], 12/19/2024 06:07:42 Result Notes None recorded. Problems Name Problem SNOMED Code Status Onset Date Resolution Date Notes Provider Name and Address Organization Details Recorded Time Joint pain in ankle and foot Completed 200610/25/2017 RECORDED 05/12/20 07 10:50AM BY ANDRE FUNES MD, OFFICE VISIT Renetta Bullard MA [facility] [place] 8 08:29:54 Vernal conjunct ivitis 402500998 Completed 200707/19/2017 RECORDED 02/08/20 08 6:25PM BY ISRA GRUBER, OFFICE VISIT Valeria Grant PA-C [address] [facility] [address], [facility] [place], [address] [place] [address] [place] 7 09:56:22 Pain in limb 34992217 Completed 200710/25/2017 RECORDED 02/08/20 08 11:34AM BY ISRA GRUBER, OFFICE VISIT Renetta ortiz, [facility] 8 08:30:16 Fatigue 54566861 Completed 201510/25/2017 Renetta ortiz, [facility] 8 08:30:12 Dizzines s 024401963 Completed 201510/25/2017 Renetta ortiz, [facility] 8 08:29:59 Cramp in lower limb 110130369 Completed 201610/25/2017 Renetta ortiz, [facility] 8 08:30:19 Hyperlip idemia 98484759 Active 2016 Valeria Grant PA-C [address], [place], [address], [facility] 7 09:31:50 Obstruct dk sleep apnea syndrome 45280541 Active 2016 Valeria Grant PA-C [address], [place], [address], [facility] 7 09:59:24 Abnormal weight gain 429753609 Completed 201607/20/2018 Valeria Acuñaden PA-C [address], [place], [address], [facility] 8 10:29:58 Thromboc ytosis 8681757 Completed 201607/21/2017 Valeria Grant PA-C [address], [place], [address], [facility] 7 16:56:36 Thromboc ytopenic disorder 952881892 Completed 201612/13/2017 Valeria Grant PA-C [address], [place], [address], 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 Had platelet s retested right after phleboto my and they were normal. P. was discharg ed. Valeria MACKEY-C [address], [place], [address], [facility] 8 17:40:48 Impaired fasting glycemia 848406270 Active 2017 Valeria MACKEY-Alfonso [address], [place], [address], [facility] 8 16:41:56 Bilatera l tinnitus 04349374781 02 Active 2017 Valeria Grant PA-C [address], [place], [address], [facility] 8 10:10:30 Prediabe paulie 697127887 Completed 201709/27/2020 Valeria Grant PA-C [address], [place], [address], [facility] 1 15:08:40 Obesity 975710117 Active 2018 Kathy ortiz, [facility] 9 14:44:04 M ni re's disease 24896596 Active 2020 Valeria MACKEY-C [address], [place], [address], [facility] 1 15:02:41 Generali zed anxiety disorder 04038883 Active 2020 Valeria MACKEY-C [address], [place], [address], [facility] 1 15:17:38 Mild major depressi on, single episode 77419270 Active 2020 Valeria MACKEY-C [address], [place], [address], [facility] 1 15:17:57 Chronic pain syndrome 515836917 Active 2020 Valeria MACKEY-C [address], [place], [address], [facility] 1 15:42:58 COVID-19 086546953 Active 2021August 2021 Had no booster Valeriaderek MACKEY-C [address], [place], [address], [facility] 2 12:50:38 Migraine with aura 7057445 Active 2023 Valeria MACKEY-C [address], [place], [address], [facility] 4 13:52:17 Body mass index 30+ - obesity 071492332 Active 2023 Valeria MACKEY-C [address], [place], [address], [facility] 5 14:57:55 Problem Notes None recorded. Procedures Surgical History Date Name Laterality Status Provider Name and Address Organization Details Recorded Time 1 Colonoscopy completed Sheree Cartagena [facility] 06/03/2021 11:38:14 8 Other completed Shannan atwood MA [facility] 01/11/2018 08:52:19 Imaging Results None recorded. Procedure Notes None recorded. Medical Equipment None Reported. Allergies Allergen ID Allergen Name Allergen Category Reaction Reaction Severity Criticality Documentation Date Start Date Code Code System Note Provider Name and Address Organization Details Recorded Time 64939 topiramat e medicatio n abdominal pain Not available Not available 12/13/2018 75493 RxNorm ANDRÉS Ram, [place] - [facility] 9 15:52:47 Medications Name Sig Start Date Stop Date Status Note LastModified by Organization Details LastModified Time Prescript ion - Prior Authoriza tion Request 03/01 completed Not Available Not Available Not Available cyclobenz aprine 10 mg tablet THREE TIMES DAILY 07/17 completed RECORDED 02/08/20 08 6:30PM BY ISRA GRUBER, OFFICE VISIT; Not Available Not Available Not Available atorvasta tin 40 mg tablet TAKE 1 TABLET BY MOUTH EVERY DAY active Not Available Not Available No t Available sumatript an 100 mg tablet TAKE 1 TABLET BY MOUTH DIRECTED active Not Available Not Available No t Available topiramat e 25 mg tablet Take 1 tablet every day by oral route for 30 days. 07/20 completed Not Available Not Available Not Available propranol ol 10 mg tablet TAKE 1 TABLET BY MOUTH TWICE DAILY 09/15 completed Not Available Not Available Not Available amitripty line 25 mg tablet Take 1 tablet every day by oral route as directed for 30 days. 10/25 completed Not Available Not Available Not Available magnesium oxide 400 mg (241.3 mg magnesium ) tablet TAKE 1 TABLET BY MOUTH EVERY DAY active Not Available Not Available No t Available oseltamiv ir 75 mg capsule Take 1 capsule every day by oral route for 10 days. 10/07 completed Not Available Not Available Not Available prednison e 50 mg tablet TAKE 1 TABLET BY MOUTH EVERY DAY FOR 5 DAYS 09/15 completed Not Available Not Available Not Available indometha fanny 50 mg capsule Take by oral route for 15 days. 07/20 completed Not Available Not Available Not Available naphazoli ne 0.025 %-phenira mine 0.3 % eye drops 07/17 completed RECORDED 02/08/20 08 6:30PM BY ISRA GRUBER, OFFICE VISIT; Not Available Not Available Not Available metronida zole 0.75 % topical gel APPLY A THIN LAYER TO THE AFFECTED AREA(S) BY TOPICAL ROUTE 2 TIMES PER DAY IN THE MORNING AND EVENING 09/27 completed Not Available Not Available Not Available verapamil ER 120 mg 24 hr capsule,e xtended release Take 1 capsule every day by oral route for 30 days. 12/13 completed for migraine preventi on Not Available Not Available Not Available peg 3350-elec trolytes 236 gram-22.7 4 gram-6.74 gram-5.86 gram solution MIX AND DISSOLVE AND DRINK AN 80Z GLASS EVERY 15-20 MINUTES 04/22 completed Not Available Not Available Not Available Saxenda 3 mg/0.5 mL (18 mg/3 mL) subcutane ous pen injector Inject 3 mg every day by subcutan eous route for 30 days. 09/15 completed Not Available Not Available Not Available riboflavi n (vitamin B2) 400 mg tablet TAKE 1 TABLET BY MOUTH EVERY DAY active Not Available Not Available No t Available Flucelvax Quad [id number] (PF) 60 mcg (15 mcg x 4)/0.5 mL IM syringe 07/19 completed Not Available Not Available Not Available Aimovig Autoinjec tor 140 mg/mL subcutane ous auto-inje ctor ADMINIST ER 1 ML UNDER THE SKIN EVERY MONTH active Not Available Not Available No t Available COVID-19 test specimen collectio n TEST DIRECTED TODAY 10/07 completed Not Available Not Available Not Available Flucelvax Quad (PF) 60 mcg (15 mcg x 4)/0.5 mL IM syringe ADM 0.5ML IM UTD 09/27 completed Not Available Not Available Not Available Wegovy 0.25 mg/0.5 mL subcutane ous pen injector ADMINIST ER 0.5 MG UNDER THE SKIN EVERY WEEK FOR 4 WEEKS 03/01 completed Not Available Not Available Not Available Wegovy 0.5 mg/0.5 mL subcutane ous pen injector active Not Available Not Available Not Available Zepbound 5 mg/0.5 mL subcutane ous pen injector Inject by subcutan eous route for 63 days. 12/21 completed Not Available Not Available Not Available Zepbound 2.5 mg/0.5 mL subcutane ous pen injector Inject by subcutan eous route for 28 days. 12/21 completed Not Available Not Available Not Available Vitals Date Recorded Body height Body mass index (BMI) Body weight Heart rate Oxygen saturation Body temperature Systolic And Diastolic Provider Name and Address Organization Details Last Updated DateTime 5 180.34 cm 35.7 kg/m2 973296. 05 g 69 /min 98 % 98.6 [degF] 130/80 mm[Hg] Karina Flores LPN [facility] 5 09:10:23 Date Recorded Body height Body mass index (BMI) Body weight Heart rate Oxygen saturation Body temperature Systolic And Diastolic Provider Name and Address Organization Details Last Updated DateTime 5 180.34 cm 34.7 kg/m2 660876. 5 g 70 /min 97 % 97.8 [degF] 122/77 mm[Hg] Naila Yanez MA [facility] 5 11:28:07 Date Recorded Body height Body mass index (BMI) Body weight Heart rate Oxygen saturation Body temperature Systolic And Diastolic Provider Name and Address Organization Details Last Updated DateTime 4 180.34 cm 35.6 kg/m2 348116. 05 g 82 /min 97 % 98.1 [degF] 102/67 mm[Hg] Shannan westbrook [facility] 4 08:46:52 Date Recorded Body height Body mass index (BMI) Body weight Heart rate Oxygen saturation Body temperature Systolic And Diastolic Provider Name and Address Organization Details Last Updated DateTime 5 180.34 cm 34.9 kg/m2 163448. 09 g 71 /min 97 % 97.9 [degF] 114/68 mm[Hg] Naila Yanez [facility] 5 08:27:00 Date Recorded Body height Body mass index (BMI) Body weight Heart rate Oxygen saturation Body temperature Systolic And Diastolic Provider Name and Address Organization Details Last Updated DateTime 4 180.34 cm 34.9 kg/m2 237106. 09 g 86 /min 97 % 98.1 [degF] 116/76 mm[Hg] Naila Yanez MA [facility] 4 08:34:16 Social History Question Answer Notes LastModified by Organizat ion Details LastModified Time Tobacco Smoking Status Never Smoker ANDRÉS Junior, [facility] 07/17/2016 11:13:57 Do You Have An Advance Directive? No [email or web address] Information not available 10/07/2021 Is Blood Transfusion Acceptable In An Emergency? Yes [email or web address] Information not available 07/17/2016 What Is Your Level Of Caffeine Consumption? Moderate 2-3 Cups Of Coffee/tea Daily; No More Soda Information not available 12/13/2018 How Much Tobacco Do You Chew? None Information not available 01/11/2018 What Type Of Diet Are You Following? REGULAR [email or web address] Information not available 09/27/2020 Which Illicit Or Recreational Drugs Have You Used? None Information not available 01/11/2018 Live Alone Or With Others? With Others (Emery) And Daughter [email or web address] Information not available 10/07/2021 Do You Take Precautions To Prevent Distracted Driving? Yes [email or web address] Information not available 07/17/2016 How Often Do You Need To Have Someone Help You When You Read Instructions, Pamphlets, Or Other Written Material From Your Doctor Or Pharmacy? Never Information not available 01/11/2018 Have You Served In The ? Yes [employer] [email or web address] Information not available 07/17/2016 To The Best Of Your Knowledge Have You Been In Close Proximity To Any Individual Who Tested Positive For COVID-19? No [email or web address] Information not available 09/27/2020 What Was The Date Of Your Most Recent Tobacco Screening? 10/02/2024 [email or web address] Information not available 10/02/2024 How Many Children Do You Have? 2 Jennifer Information not available 01/11/2018 Do You Use Protection During Sex? No [email or web address] Information not available 09/27/2020 Do You Use Your Seat Belt Or Car Seat Routinely? Yes [email or web address] Information not available 10/07/2021 Seat Belts Used Routinely Yes [email or web address] Information not available 10/07/2021 Are You Sexually Active? Yes [email or web address] Information not available 07/17/2016 Smoke Alarm In Home Yes [email or web address] Information not available 10/07/2021 Do You Have Smoke And Carbon Monoxide Detectors In Your Home? Yes Information not available 10/07/2021 At What Age Did You Start Smoking Tobacco? 0 Information not available 01/11/2018 Are You Passively Exposed To Smoke? No [email or web address] Information not available 09/27/2020 How Much Tobacco Do You Smoke? No Information not available 01/11/2018 Do You Use Sunscreen Routinely? Yes [email or web address] Information not available 07/17/2016 How Many Years Have You Smoked Tobacco? 0 Information not available 01/11/2018 Sex: Unknown Functional Status Question Answer Note LastModified by Organizat ion Details LastModified Time What is your level of alcohol consumption? Occasional [email or web address] Information not available 07/17/2016 Do you or have you ever used smokeless tobacco? Never used smokeless tobacco [email or web address] Information not available 09/27/2020 Are you currently employed? Yes [email or web address] Information not available 07/17/2016 Are you able to walk independently without assistance or assistive devices? YESWOREST [email or web address] Information not available 09/15/2023 Are you able to care for yourself independently? 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 Never used electronic cigarettes [email or web address] Information not available 10/07/2021 What is your exercise level? Occasional Information not available 10/07/2021 Mental Status None recorded. Family History Relationship Description Onset Age of this Age Resolved Age Notes LastModified by Organization Details LastModified Time Paternal Uncle Marfan's syndrome [email or web address] Not available 07/17 11:12:47 Father No current problems or disability [email or web address] Not available 01/11/2018 08:42:08 Mother No current problems or disability [email or web address] s Not available 01/11/2018 08:42:08 Notes:no FH of breast or col on cancer Medical History Condition Response Anxiety Disorder Y Other Y Ear or Hearing Problems Y Headaches/Migraines Y Depression Y GI Problems Y Immunizations Vaccine Type Date Status Note Provider Nam e and Address Organization Details Recorded Time Tdap 1 completed ANDRÉS Junior [facility] 07/17/2016 11:11:40 Influenza, split virus, quadrivalent, preservative 6 [facility] 11:11:52 COVID-19, mRNA, LNP-S, PF, 30 mcg/0.3 mL dose 1 completed ANDRÉS Potts [facility] 10/07/2021 08:55:29 COVID-19, mRNA, LNP-S, PF, 30 mcg/0.3 mL dose 1 [facility] 08:55:55 Influenza, MDCK, quadrivalent, PF 0 completed ANDRÉS Jnuior [facility] 03/17/2022 14:56:15 Influenza, MDCK, quadrivalent, PF 7 [facility] 14:56:15 Influenza, split virus, quadrivalent, PF 1 completed ANDRÉS Junior [facility] 03/17/2022 14:56:15 Influenza, split virus, quadrivalent, PF 8 completed ANDRÉS Junior [facility] 03/17/2022 15:04:04 Tdap 1 completed ANDRÉS Junior [facility] 03/17/2022 15:04:05 Past Encounters Encounter ID Performer Location Encounter Start Date Encounter Closed Date Diagnosis/Indication Diagnosis SNOMED-CT Code Diagnosis ICD10 Code Diagnosis IMO Codes Diagnosis Note [id number] [facility]ce [address] [facility], [address] [place] [address] 05/12/2007 00:00:00 [id number] autoEComm erce [address] [facility] [address] [place] [address] 02/08/2008 00:00:00 [id number] Valeria Grant PA-C Main Office [address] [facility] [address] [place] [address] 07/17/2016 10:54:20 07/17/2016 12:24:52 Frontal headache 992284945 R51 ? Atypical migraines , other neurologic type headache. PT. has balance issues. ? MS Will scheduled for MRI and refer to neurologis t for full eval and management . Fatigue 62808061 R53.83 Vitamin D deficiency 347 63317 E55.9 Hyperlipidemia 50986162 E78.5 Body mass index 30+ - obesity 604326563 Z68.30 Anxiety state 430591920 F41.1 Possibly replated to ongoing stress at work and also medically not feeling well. Pt. was advised to see counselor, but wants to postpone until neurologic evaluation s are done. Adult heal th examination 080706579 Z00.00 Pt. is up to date on vaccines due to beeing in reserve. Myalgia/my ositis - lower leg 751821371 M79.1 Dizziness 352058324 R42 [id number] Valeria Grant PA-C Main Office [address] [facility] [address] [place] [address] 10/07/2016 08:39:42 10/07/2016 09:41:52 Cramp in lower limb 619078448 R25.2 Unclear etiology complain of ankle tension and calf tension as well as intermitte nt balance issues and muscle cramps; PT's prior labs were unremarkab le. I will include Magnesium level. Discuss with Dr. Cueva further extremity neurologic testing /eval. If it is strictly muscular, he might need to see physiatris t and have muscle relaxants and PT prescribed . Will obtain old notes from orthopedic s. Hyperlipidemia 64783106 E78.5 Repeat testing. Continue low kwasi /low fat diet and weight loss. [id number] Valeria Grant PA-C Main Office [address] [facility] [address] [place] [address] 07/19/2017 09:06:53 07/19/2017 10:13:44 Adult health examination 065149035 Z00.00 Hyperlipidemia 37962554 E78.5 Repeat testing. Continue low kwasi /low fat diet and weight loss. Fatigue 85289891 R53.83 Pain in limb 73429270 M7 9.609 chronic plantar fasciitis, sees therapist Body mass index 30+ - obesity 328166402 E66.9 Z68.35 Pt./ refused to see nutritioni st. Will reduce total calories and start exercise activity. Abnormal weight gain 161 558172 R63.5 Combinatio n of diet and amitriptyl ine. Pt. is advised to meet [facility] Dr. Forte after holidays and consider going off the medicine and maybe starting with Topamax instead for prevention . Also, pt. has untreated sleep apnea. Obstructiv e sleep apnea syndrome 85571195 G47.33 REvisit / Trudy who originally referred him for testing. Pt. needs to have [facility] arrange CPAP trial. Migraine without aura 56 715430 G43.009 Pt. will discuss with Dr. Forte switching amitriptyl ine to Topomax. [id number] Valeria Grant PA-C Main Office [address] [facility] [address] [place] [address] 10/25/2017 08:15:53 10/25/2017 09:33:01 Hyperlipidemia 25927382 E78.5 Will repeat lipids in July. Thrombocyt openic disorder 348975640 D69.6 Abnormal l iver function 96519543 K76.89 Body mass index 30+ - obesity 071602471 E66.9 Z68.36 Pt./ refused to see nutritioni st. Will reduce total calories and start exercise activity. [id number] Valeria Grant PA-C Main Office [address] [facility] [address] [place] [address] 01/11/2018 08:38:08 01/11/2018 09:38:19 Hyperlipidemia 15694390 E78.5 Stable on medication . Continue Atorvastat in 40 mg as prescribed . Recommende d low sodium diet with low impact exercise. Repeat labs in July. Body mass index 30+ - obesity 040568500 E66.9 Z68.35 Pt./ refused to see nutritioni st. Will reduce total calories and start exercise activity. Rosacea, e rythematous telangiectatic type 092111 L71.8 Use medication as directed. Advised to RTO if condition worsens or doesn't go away. Migraine 35794781 G43.90 9 Continue follow up with specialist for medication evaluation due to continued frequent migraines. [id number] Valeria Grant PA-C Main Office [address] [facility] [address] [place] [address] 07/20/2018 09:02:27 07/20/2018 10:29:03 Adult health examination 453115564 Z00.00 Needs infl uenza immunization 242625143 Z23 Prediabetes 961939904 R7 3.03 HgA1c is normal at 5.3%. PT. will be referred for comprehens dk weight management program to persue actively weight loss. Body mass index 30+ - obesity 813296390 E66.9 Z68.37 Pt./ refused to see [facility]. Will reduce total calories and start exercise activity. Hyperlipidemia 87092604 E78.5 Stable on medication . Continue Atorvastat in 40 mg as prescribed . Recommende d low sodium diet with low impact exercise. Repeat labs before next scheduled visit. Migraine 08850069 G43.90 9 Continue follow up with specialist for medication evaluation due to continued frequent migraines. 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 had hem/onc consult. [id number] Glenn Cummings MD Main Office [address] [facility] [address] [place] [address] 12/13/2018 15:44:28 12/13/2018 16:32:02 Body mass index 30+ - obesity 454637779 Z68.34 Continue exercise ad low carb diet. Hyperlipidemia 57878989 E78.5 Stable on medication . Continue Atorvastat in 40 mg as prescribed . Recommende d low sodium diet with low impact exercise. Repeat labs before next scheduled visit. Prediabetes 220033698 R7 3.03 HgA1c is normal at 5.3%. PT. will be referred for comprehens dk weight management program to persue actively weight loss. Obesity 559199423 E66.9 [id number] Valeria Grant PA-C Main Office [address] [facility] [address] [place] [address] 09/27/2020 14:22:31 09/27/2020 15:33:55 Adult health examination 165227124 Z00.00 update tetanus vaccine. Migraine 34037107 G43.90 9 Continue current meds. Sees neurology as scheduled. Impaired f asting glycemia 725306154 R73.01 discussed weight loss via exercise daily and low carb/low calorie eating. Retest in 6-8 months. Consider referral for weight management . Body mass index 30+ - obesity 687710647 Z68.38 Continue exercise ad low carb diet. M ni re's disease 79484709 H81.03 See ENT as needed. Chronic pain syndrome 37 6374048 G89.4 chronic leg pain , unknown etiology. Obstructiv e sleep apnea syndrome 39172587 G47.33 Continue CPAP. Requires a tetanus booster 377224614 Z28.3 Generalize d anxiety disorder 79986477 F41.1 recommend therapy. Pt. [facility] the [facility]. Mild major depression, single episode 82246801 F32.0 Score is low, so no meds are recommende d but therapy could be helpful. Screening for malignant neoplasm of colon 124166160 Z12.11 refer for testing at Obesity 588710895 E66.9 [id number] Winston Mclaughlin MD Main Office [address] [facility] [address] [facility] [place] [address] 04/22/2021 14:25:27 04/22/2021 14:50:41 Body mass index 30+ - obesity 583202111 Z68.36 Continue exercise ad low carb diet. Physical is due in 5-6 m. Impaired f asting glycemia 235211789 R73.01 A1c is so far normal. WE will retest in September. Obesity 746320797 E66.9 [id number] Andre William MD Main Office [address] [facility] [address] [facility] [place] [address] 10/07/2021 08:44:07 10/07/2021 09:57:29 Adult health examination 414401325 Z00.00 Hyperlipidemia 20378811 E78.5 Stable on medication . Continue Atorvastat in 40 mg as prescribed . Recommende d low sodium diet with low impact exercise. Repeat labs before next scheduled visit. Impaired f asting glycemia 509973247 R73.01 repeat testing, consider using GLP-1 if weight does not go down with diet and exercise alone. Migraine 29539339 G43.90 9 Continue current meds. Sees neurology as scheduled. Obstructiv e sleep apnea syndrome 70556162 G47.33 Continue using CPAP. Body mass index 30+ - obesity 537630523 Z68.35 Continue exercise ad low carb diet. revisit in 3-4 m. Consider GLP-1. M ni re's disease 60808733 H81.03 stable Bilateral tinnitus 44073 33561 102 H93.13 Chronic pain syndrome 37 5288304 G89.4 chronic leg pain , unknown etiology. Benign pro static hyperplasia 222185787 N40.0 Fatigue 81109322 R53.83 Obesity 835712883 E66.9 [id number] Kassy Richard MD Main Office [address] [facility] [address] [place] [address] 03/17/2022 14:50:44 03/17/2022 15:28:35 Impaired fasting glycemia 067513545 R73.01 repeat testing, consider using GLP-1 if weight does not go down with diet and exercise alone. Body mass index 30+ - obesity 263030511 Z68.36 Obesity with inability to lose weight , bmi of 36 and h/o impaired fasting glucose w/o diabetes. Pt. is at high risk for developing HTN and type II diabetes. He tried to lose weight on his own for 6 months and was unable to lose . Pt. is recommende d to begin GLP-1 injections . Obesity 110628775 E66.9 [id number] Kassy Richard MD Main Office [address] [address] 09/15/2023 13:07:09 09/15/2023 14:21:44 Adult health examination 101104345 Z00.00 Impaired f asting glycemia 585639230 R73.01 repeat testing, offer treatment for weight with GLP-1 Zepbound 2.5 mg weekly for 4 weeks, then theraputic dose of 5 mg weekly. Generalize d anxiety disorder 80366477 F41.1 Pt. is seen at the [facility]. Hyperlipidemia 46112318 E78.5 Stable on medication . Continue Atorvastat in 40 mg as prescribed . repeat fasting lipids. Migraine 14666414 G43.90 9 Continue current meds. Sees neurology as scheduled. Mild major depression, single episode 32018987 F32.0 Score is normal. M ni re's disease 92452516 H81.03 stable, intermitte nt dizziness. Obstructiv e sleep apnea syndrome 59617109 G47.33 Continue using CPAP. Pseudothro sobiaocyteloise a 333439277 D69.8 repeat CBC. Chronic pain syndrome 37 7252684 G89.4 chronic leg pain , unknown etiology. Pt. is on magnesium. Bilateral tinnitus 42121 09472 102 H93.13 stable. Body mass index 30+ - obesity 831820786 E66.9 Z68.37 Obesity with inability to lose weight , bmi of 37.7 and h/o impaired fasting glucose w/o diabetes. Pt. is at high risk for developing HTN and type II diabetes. He tried to lose weight on his own for 6 months and was unable to lose . Pt. is recommende d to begin GLP-1 injections . Benign pro static hyperplasia 680491453 N40.0 repeat PSA [id number] Kassy Richard MD Main Office [address] [place] [address] 12/22/2023 08:26:26 12/22/2023 09:05:53 Body mass index 30+ - obesity 897312539 E66.9 Z68.37 Obesity with inability to lose weight , bmi of 37.1 and only slightly lower since September with attempting diet and more activity. Pt. has impaired fasting glycemia with high risk to develop type II diabetes , hypertensi on . His triglyceri de are above norm. Pt. can benefit from GLP-1 replacemen t therapy due to prevention of cardiovasc ular disease and diabetes. Wegovy is indicated for weight loss w/o diabetes. We will start at 0.25 mg weekly for 4 weeks, then maintenanc e dose of 0.5 mg weekly. WE discussed all recent laboratory tests and also possible drug side effects. PT. is stronglyy advised to exercise daily and maintain low carb low calorie diet. F/u is recom 6-8 weeks after the start of new medication . Total time spent teaching and coord care 45 minutes. Impaired f asting glycemia 209488081 R73.01 repeat fasting glucose and A!c every 6 months. Hyperlipidemia 89154763 E78.5 Continue Atorvastat in 40 mg as prescribed . repeat fasting lipids. [id number] Winston Mclaughlin MD Main Office [address] [place] [address] 03/01/2024 08:32:59 03/01/2024 09:10:16 Body mass index 30+ - obesity 376203581 E66.9 Z68.35 Pt .is doing very well after the start of Wegovy on smallest dose was able to lose at least 1 lbs per week and maintain weight loss. Appetite is adequate on this dose and there is no side effects. WE will continue current dose , diet and exercise. Repeat bmp prior to next visit in 3 m. [id number] Winston Mclaughlin MD Main Office [address] [facility] [address] [place] [address] 05/29/2024 08:25:49 05/29/2024 09:04:21 Body mass index 30+ - obesity 719390480 E66.9 Z68.35 Down 5 lbs since last visit in January, current BMI 34.9. Patient states that he's overall been eating better, with less processed foods and sugars, and states that he's been trying to weight lift more for exercise. He is on Wegovy 0.5 mg for weight management at this time. He is satisfied with this current dose and does not wish to increase it at this time. Plan to continue at 0.5 mg dose, continue diet & exercise, and follow-up with patient in September for his next physical. If weight is still relatively unchanged, we will increase his Wegovy dose. Repeat CMP and TSH labs before next visit. Hyperlipidemia 02755021 E78.5 Continue Atorvastat in 40 mg as prescribed . Repeat fasting lipids before next follow-up reginald paez glycemia 486015877 R73.01 Repeat fasting glucose and A1C q 6 months. Continue working on weight loss. Continue small dose of wegovy. [id number] Andre William MD Main Office [address] [facility] [address] [place] [address] 10/02/2024 08:53:52 10/02/2024 10:08:54 Adult health examination 873124845 Z00.00 recommend flu vaccine and shingrix. repeat fasting labs and PSA. PT. declines flu vaccine today. Body mass index 30+ - obesity 466573524 E66.9 Z68.35 Current weight is 35.7 with 6 lbs weight gain since pt stopped wegovy 1 month ago due to cost increase with new insurance. I recommend pt to begin exercise activity and try to keep calories low and we will resent Wegovy in hopes it will have better coverage. Pt's benefit prevention of diabetes as he has impaired fasting glucose, prevention of coronary artery disease due to hyperlipid emia, cancer prevention , renal disease prevention . F/u 3 m. Generalize d anxiety disorder 38868180 F41.1 Pt. is seen at the NH. Hyperlipidemia 17288409 E78.5 Continue Atorvastat in 40 mg as prescribed . Repeat fasting lipids . Impaired f asting glycemia 587843253 R73.01 Repeat fasting glucose and A1C q 6 months. Continue working on weight loss. Restart Wegovy. Migraine with aura 11578 06 G43.109 Pt. sees neurologis t , on Aimovig injections . Mild major depression, single episode 84046066 F32.0 F/u at the NH. M ni re's disease 31041563 H81.03 stable, intermitte nt dizziness. Obstructiv e sleep apnea syndrome 40319967 G47.33 Continue using CPAP. Pseudothro mbocytopeni a 644311669 D69.8 repeat CBC. Chronic pain syndrome 37 2753766 G89.4 chronic leg pain , unknown etiology. Pt. is on magnesium. Varicella vaccination 68 966416 Z23 [id number] Andre William MD Main Office [address] [facility] [address] [facility] [place] [address] 12/18/2024 11:23:34 12/18/2024 11:44:34 Body mass index 30+ - obesity 848052391 Z68.34 E66.811 188331 Current BMI is 34.7 with 67lbs weight loss since last visit 2 months ago. Pt can not afford cost of GLP-1 , but is very motivated to continue daily,exer cise and low calorie low carb diet. WE will f/u in 3 m. Pt will have all labs repeated fasting. [id number] Winston Mclaughlin MD Main Office [address] [facility] [address] [facility] [place] [address] 04/20/2025 08:22:17 04/20/2025 08:55:13 Hyperlipidemia 59197921 E78.5 Continue Atorvastat in 40 mg as prescribed . Repeat fasting lipids . Body mass index 30+ - obesity 783657833 Z68.34 E66.9 568630 Current BMI is 34.9 . Highest weight was 270 in Sep. No additional weight loss since visit 4 m ago. Pt can not afford GLP-1 , not cover by insurance plan. Recom to look into phentermin e or Contrave can be used. Pt would like to wait and research further, but will consider. Pt was encouraged to increase his physical activity and continue low calorie diet. Labs were reviewed and are all up to date. Impaired f asting glycemia 194175308 R73.01 Last fasting glucose was 95 4 m ago, A1c 5.5%. recom to retest after next visit. Health Concerns Section Related Observation LastModified by Organization Detai ls LastModified Time None Recorded Concern Status LastModified by Organization Details LastModified Time None Recorded Advance Directives Directive N: Payers Insurance Date Sequence Insurance Name Policy Number Policy Garcia Covered Member ID Garcia Member ID Guarantor Name 05/02/2025 1 [facility]: [employer]GRAM (PPO) [id number] Daren Uriarte [id number] Daren Uriarte Notes Date Note Type Note Provider Name and Address Organization Details Recorded Time 4 text/html ROS as noted in the [facility] 53 year old male with h/o impaired fasting glycemia and obesity for weight check. Pt. was started on Wegovy on 12/22/23, just over 2 months ago. BMI was at 37.7. Pt. started at 0.25 mg weekly for 4 weeks, last 5 weeks on 0.5 mg weekly dose. Reports no side effects. Reports early satiety across the day. Able to reduce portions significantly. WEight loss since the last visit is 11 lbs. Valeria Grant PA-C [id number] [address], [place], [phone], [facility] 03/01/2024 09:17:13 4 text/html ROS as noted in the [facility] 53 year old male with h/o impaired fasting glycemia and obesity presents to the office for weight check. Pt. was started on Wegovy on 12/22/23, just over 5 months ago. BMI was at 37.7, currently 34.9 today. Pt. initially started at 0.25 mg weekly for 4 weeks, then has been following a 0.5 mg weekly dose. Reports no side effects. Weight loss since the last visit in January is 5 lbs.Diet - reports that overall he's eating less - eats chicken, beef, pasta. Reports that he has small amounts of processed foods or sugars, but less than before.Exercise - recently he has been trying to weight lift. Valeria Grant PA-C [address] [address], [place], [phone], [facility] 05/29/2024 13:25:14 5 text/html Generic HPI TemplateReported by Aarmdoq58 year old male for annual wellness visit.Colonoscopy was normal in June 2021 , 10 year recall recommended.Vaccines: 2 COVID vaccines no booster. Other vaccinations are up to date.Denies family h/o prostate cancer. Urinates 1-2 times over night. PSA was normal last year.Obstructive sleep apnea , on CPAP nightly. Managed through neurology, Dr. Forte's office.Chronic tinnitus due to exposure to aircraft noise. Pt. also has h/o Meniere's disease with mild decrease in hearing.Pt. refused KEVIN and PHQ testing.BMI is at 35.7. PT. was on Wegovy 0.5 mg weekly dose until 4 weeks ago. Pt. reports his insurance changed to [employer]. Pt's portion was $700 per month. Pt. lost total pf 20 lbs while on wegovy , but regained 6 lbs since stopped taking meds 1 months ago. He also reports being on vacation and not restricting his calories and not exercising regularly.Pt. has peripheral muscle weakness and balance issues. Can not do certain types of physical exercise due to balance issues and dizziness from Meniere's disease.Migraine with aura followed by Dr. Forte. On Aimovig injections and sumatriptan. Migraines are till couple of times weekly , but more manageable.Hyperlipidemia is stable on meds. PT. is due for fasting labs.ROS as noted in the HPI Taking meds consistently? change in diet? activity level? consider increase in wegovy 1 mg Valeria Grant PA-C [address] [address], [place], [phone], [facility] 10/02/2024 10:16:35 5 text/html ObesityReported by PatientHPIFor diagnosis summary, patient reportsdiagnosis: obesityandadditional diagnosis: impared glucose tolerance(hyperlipidemia) . For context, patient reportsno inhaled steroidsandno oral steroids. For associated symptoms, patient reportsno depression,no chronic illness,no prader-willi syndrome, andno hypothyroidism. For co-morbidities, patient reportsno new co-morbidities since last visit. For lifestyle changes, patient reportsno changes in living situation,motivated to continue lifestyle changes,losing weight, andexercising more. For nutrition, patient reportseats mostly healthy diet,eats low fat diet,eats low carbohydrate diet,restricting concentrated sugars, andwhole grain foods. For physical activity, patient reportsreported frequency of moderate level of physical activity per week: 2-4 days.Pt. lost 7 lbs since the last visit in September ( 2.5 months). Current BMI is 34.7.ROS as noted in the HPI 54 year old male with h/o impaired fasting glycemia and obesity presents to the office for weight check. Pt. was started on Wegovy on 12/22/23,. Lost at least 20 lbs , but had to discontinue due to insurance changes and large deductible cost. Valeria Grant PA-C [address] [address], [place], [phone], [facility] 12/18/2024 14:59:43 5 text/html ObesityReported by PatientHPIFor diagnosis summary, patient reportsdiagnosis: obesityandadditional diagnosis: impared glucose tolerance(hyperlipidemia) . For context, patient reportsno inhaled steroidsandno oral steroids. For associated symptoms, patient reportsno depression,no chronic illness,no prader-willi syndrome, andno hypothyroidism. For co-morbidities, patient reportsno new co-morbidities since last visit. For lifestyle changes, patient reportsno changes in living situation,motivated to continue lifestyle changes,losing weight, andexercising more. For nutrition, patient reportseats mostly healthy diet,eats low fat diet,eats low carbohydrate diet,restricting concentrated sugars, andwhole grain foods. For physical activity, patient reportsreported frequency of moderate level of physical activity per week: 2-4 days.No weight loss since the last visit in November ( 4 months). Current BMI is 34.9. Pt's insurance declined coverage for GLP-1ROS as noted in the HPI 54 year old male with h/o impaired fasting glycemia and obesity presents to the office for weight check. Pt. was started on Wegovy on 12/22/23,. Lost at least 20 lbs , but had to discontinue due to insurance changes and large deductible cost. Valeria Grant PA-C [address] [address], [place], [phone], [facility] 04/20/2025 12:36:54
--- OUTSIDE RECORDS SUMMARY | 2025-08-01 10:38 | XMS_ITS | Encounter Summary ---
Author Organization [facility] Address [address] [place] [address] Phone Care Team Providers Care Mechanical Planner Name Role Phone Pcp, Not Required Primary Care Provider Unavaila ble Encounter Details Date Type Department Care Team (Late st Contact Info) Description 11/30/2017 Procedure Pass [facility] [address] [place] [id number] Social History Tobacco Use Types Packs/Day Years Used Date Smoking Tobacco: Never Smokeless Tobacco: Never Alcohol Use Standard Drinks/Week Comments Yes 0 (1 standard drink = 0.6 oz pur e alcohol) rare Sex and Gender Information Value Date Recorded Sex Assigned at Not on file Legal Sex Male 10:43 AM EDT Gender Identity Not on file Sexual Orientation Not on file 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 It is not the complete legal health record.[facility]
--- OUTSIDE RECORDS SUMMARY | 2025-08-01 10:38 | XMS_ITS | Encounter Summary ---
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 It is not the complete legal health record.[facility]
--- OUTSIDE RECORDS SUMMARY | 2025-08-01 10:38 | XMS_ITS | Encounter Summary ---
Author Organization 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 It is not the complete legal health record.[facility]
--- OUTSIDE RECORDS SUMMARY | 2025-08-01 10:38 | XMS_ITS | Encounter Summary ---
Author Organization [facility] Address [address] [place] [address] Phone Care Team Providers Care Stylist Assistant Name Role Phone Pcp, Not Required Primary Care Provider Unavaila ble Reason for Referral * Consultation (Elective) - Closed Specialty Diagnoses / Procedures Referred By Catalino trujillo Referred To Contact Neurology Diagnoses Encounter for consultation System, Provider Not In, PhD [address] [address] Referral ID Status Reason Start Date Expiration Date Visits Re quested Visits Authorized [id number] Closed 07/10/2016 07/10/2017 1 1 Encounter Details Date Type Department Care Team (Latest Contact Info) Description 07/10/2016 Transcribe Orders [facility] [address]th [address], [address] [place] [address] Srinivasa Crowley MD [address] [place] [address] Encounter for consultation (Primary Dx) Social History Tobacco Use Types Packs/Day Years Used Date Smoking Tobacco: Never Assessed Sex and Gender Information Value Date Recorded Sex Assigned at Not on file Legal Sex Male 10:43 AM EDT Gender Identity Not on file Sexual Orientation Not on file documented as of this encounter Plan of Treatment Scheduled Referrals Name Type Priority Associated Diagnoses Orde r Schedule Ambulatory referral to [facility] Referral Routine Encounter for consultation Ordered: 07/10/2016 documented as of this encounter Visit Diagnoses Diagnosis Encounter for consultation- Primary documented in this encounter Care Teams Stylist Assistant Relationship Specialty Start Date End Date Pcp, Not Required PCP - General 05/18/16 documented as of this encounter Additional Source Comments The information contained in this document represents components of the legal health record. It is not the complete legal health record.[facility]
--- OUTSIDE RECORDS SUMMARY | 2025-08-01 10:38 | XMS_ITS | Clinical Summary ---
Author Organization [facility] Address [address] [place] [address] Phone Care Team Providers Care Property Claims Manager Name Role Phone Pcp, Not Required Primary Care Provider Unavaila ble Allergies No known active allergies Medications atorvastatin (LIPITOR) 40 MG tablet Take 10 mg by mouth daily. Active SUMATRIPTAN SUCCINATE ORAL Take by mouth as needed. Active topiramate (TOPAMAX) 15 MG capsule Take by mouth 2 (two) times a day. Active Medication-Free TextIndications :5HTP (supplement) Take 1 tablet by mouth daily as needed. Indications: 5HTP (supplement) Active acetaminophen (TYLENOL) 325 mg tablet Take 2 tablets (650 mg total) by mouth every 6 (six) hours as needed for mild pain. 8 Active oxyCODONE 5 MG immediate release tablet Take 1 tablet (5 mg total) by mouth every 4 (four) hours as needed for moderate pain or severe pain. Analgesic management refractory to non-opioid agents in the acute setting of recent surgery which is documented in the medical record. Partial fill is permissable. 6 tablet 8 Active Additional Information Patient not taking.Reported on 03/18/2018 docusate sodium (COLACE) 100 MG capsule Take 1 capsule (100 mg total) by mouth 2 (two) times a day as needed for constipation. 30 capsule 8 Active Additional Information Patient not taking.Reported on 03/18/2018 Active Problems Problem Noted Date Diagnosed Date Nonintractable migraine 10/08/2017 Other hyperlipidemia 10/08/2017 Family History Medical History Relation Comments Stroke Father COPD Mother Crohn's disease Mother Emphysema Mother Relation Status Comments Brother Alive Father (Age 70) Fm Hx Marfans syndrome Maternal Grandfather Maternal Grandmother Mother Alive Paternal Grandfather Paternal Grandmother Sister Alive Social History Tobacco Use Types Packs/Day Years Used Date Smoking Tobacco: Never Smokeless Tobacco: Never Alcohol Use Standard Drinks/Week Comments Yes 0 (1 standard drink = 0.6 oz pur e alcohol) rare Education Answer Date Recorded Are you interested in more education? Not on demetrice e 11/27/2022 Are you concerned about learning? Not on file 11/27/2022 No 11/27/2022 No 11/27/2022 Digital Access Answer Date Recorded No 12/27/2022 No 12/27/2022 No 12/27/2022 Reliable internet access at home? Not on file 12/27/2022 Device with a working camera? 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 Not on file Not on file Last Filed Vital Signs Vital Sign Reading Time Taken Comments Blood Pressure 115/76 03/18/2018 9:55 AM EDT Pulse 75 03/18/2018 9:55 AM EDT Temperature 36.3 C (97.4 F) 03/18/2018 9:55 AM EDT Respiratory Rate 16 11/30/2017 1:00 PM EDT Oxygen Saturation 98% 03/18/2018 9:55 AM EDT Inhaled Oxygen Concentration - - Weight 123.6 kg (272 lb 6.4 oz) 03/18/2018 9:55 AM EDT Height 181 cm (5' 11.25 ) 03/18/2018 9:55 AM EDT Body Mass Index 37.73 03/18/2018 9:55 AM EDT Plan of Treatment Health Maintenance Due Date Last Done Comments LIPID PANEL 1970 DEPRESSION SCREENING 1982 HEPATITIS C SCREENING 1988 HIV ONE-TIME SCREENING (18-6 5 YEARS) 1988 COLOGUARD 12/03/2015 COLONOSCOPY 12/03/2015 COLORECTAL CANCER SCREENING 12/03/2015 FIT TEST 12/03/2015 FOBT 12/03/2015 SIGMOIDOSCOPY 12/03/2015 VIRTUAL COLONOSCOPY 12/03/2015 PNEUMOCOCCAL VACCINES (50+ years) (1 of 1 - PCV) 2020 ZOSTER VACCINES (1 of 2) 2020 INFLUENZA VACCINE (#1) 2025 , 06/28/2017, 05/02/2016 COVID-19 VACCINE (3 - 2024-2 6 season) 2025 10/30/2020, 10/09/2020 Adult Td,Tdap Booster 09/27/2030 09/27/2020 , 08/02/2010 RSV VACCINE (1 - 1-dose 75+ series) 2045 SMOKING STATUS SCREENING (On ce After 26 Yrs) Completed 03/18/2018 HEPATITIS A VACCINES Aged Out No long er eligible based on patient's age to complete this topic HIB VACCINES Aged Out No longer eligi ble based on patient's age to complete this topic MENINGOCOCCAL VACCINES (ACWY) Aged Out No longer eligible based on patient's age to complete this topic MENINGOCOCCAL VACCINES (B) Aged Out N o longer eligible based on patient's age to complete this topic Medical Devices Not on file Insurance ([place]) [address] [place] [address] [facility] Subscriber Plan / Payer ( fective 2001-Present) Name:Chapito, Daren Relation to Subscriber:Self Name:Chapito Daren Payer ID:[id number] (NAIC) Group ID:[id number] Type:PPO Address: [facility] [id number] [employer] [place], [place] BLUE [employer]OSS FEDERAL Care Teams Property Claims Manager Relationship Specialty Start Date End Date Pcp, Not Required PCP - General 05/18/16 Additional Source Comments The information contained in this document represents components of the legal health record. It is not the complete legal health record.[facility]
--- OUTSIDE RECORDS SUMMARY | 2025-08-01 10:38 | XMS_ITS | Encounter Summary ---
Author Organization [facility] Address [address] [place] [address] Phone Care Team Providers Care Client Portfolio Manager Name Role Phone Pcp, Not Required Primary Care Provider Unavaila ble Encounter Details Date Type Department Care Team (Late st Contact Info) Description 10/16/2016 Procedure Pass [facility] [address] [facility] 1st [place] [address] Social History Tobacco Use Types Packs/Day Years Used Date Smoking Tobacco: Never Sex and Gender Information Value Date Recorded Sex Assigned at Not on file Legal Sex Male 10:43 AM EDT Gender Identity Not on file Sexual Orientation Not on file documented as of this encounter Plan of Treatment Not on file documented as of this encounter Visit Diagnoses Not on filedocumented in this encounter Care Teams Client Portfolio Manager Relationship Specialty Start Date End Date Pcp, Not Required PCP - General 05/18/16 documented as of this encounter Additional Source Comments The information contained in this document represents components of the legal health record. It is not the complete legal health record.[facility]
[2025-08-01 10:53] LABS: Hematocrit 46.7 % (42.0-52.0); Hemoglobin 15.4 g/dl (14.0-18.0); Mean Corpuscular HGB Conc 33.0 g/dl (31.0-36.0); Mean Corpuscular Hemoglobin 27.1 pg (27.0-33.0); Mean Corpuscular Volume 82.2 fL (80.0-98.0); NRBC Abs Auto 0.000 X10*3/uL (0.0-0.012); NRBC Pct Auto 0.0 /100WBC (0.0-0.2); Platelet Count 156 X10*3/uL (160-400); Red Blood Count 5.68 X10*6/uL (4.60-5.80); White Blood Count 7.1 X10*3/uL (4.8-10.8)
[2025-08-01 11:28] LABS: Alanine Aminotransferase 48 U/L (0-40); Albumin Level 5.0 g/dL (3.5-5.0); Alkaline Phosphatase 65 U/L (39-117); Anion Gap 13 (12-20); Aspartate Amino Transferase 35 U/L (5-37); Blood Urea Nitrogen 19 mg/dL (9-16); Calcium 10.0 mg/dL (8.4-10.2); Carbon Dioxide 26 mmol/L (22-29); Chloride 110 mmol/L (96-108); Estimated Glomerular Filt Rate > 60; Iron 69 mcg/dL (45-160); Magnesium 2.1 mg/dL (1.6-2.6); Percent Iron Saturation 27 % (15-50); Potassium 4.4 mmol/L (3.3-5.1); Sodium 145 mmol/L (135-145); Total Iron Binding Capacity 255 mcg/dL (228-428); Total Protein 7.6 g/dL (6.5-8.0); Unsaturated Iron Binding 186 ug/dL
[2025-08-01 11:43] LABS: Ferritin 177 ng/mL (20-250)
[2025-08-01 11:49] LABS: Folate 6.1 ng/mL (> or = 4.0); Vitamin B12 398 pg/mL (200-900)
== END 2025-08-01 09:52 | disposition home or self-care (01) ==
LOC: HO.HKASLDS 09:51
PROVIDERS: PCP Physician Assistant Medical; Visit Provider Physician Assistant Medical
DX: Z13.1 Encounter for screening for diabetes mellitus (principal); Z13.0 Encounter for screening for diseases of the blood and blood-forming organs and certain disorders involving the immune mechanism; R53.83 Other fatigue; G47.9 Sleep disorder, unspecified
CPT/HCPCS: 36415; 80053; 82306; 82607; 82728; 82746; 83036; 83090; 83540; 83735; 83921; 84207; 84425; 84443; 85027